=== PATIENT | female | born 1955 | race Caucasian/White ===

== ENCOUNTER → 2021-01-04 10:37 | Outpatient (CLI) | payer MEDICARE, SELFPAY ==
--- NOTE | ~2021-01-04 | MM_ITS ---
EXAMINATION: MM screening dina BI w tino HISTORY: Screening mammogram TECHNIQUE: Craniocaudal and mediolateral oblique 3-D tomosynthesis images were obtained and synthetic 2-D images were generated. CAD analysis was submitted and interpreted. COMPARISON: 10/23/2017, 10/16/2016, 10/14/2015 bilateral digital screening mammogram examinations BREAST PARENCHYMAL COMPOSITION: The breasts are almost entirely fatty. FINDINGS: There is no evidence of suspicious mass, calcification, or architectural distortion to sugg est malignancy in either breast. There has been no suspicious interval change. IMPRESSION: 1. No mammographic evidence of malignancy. 2. Recommend routine screening mammography in one year. BI-RADS Category 1: Negative Reviewed, dictated and finalized at location A.
== END ==
PROVIDERS: PCP Internal Medicine; Visit Provider Internal Medicine
DX: Z12.31 Encounter for screening mammogram for malignant neoplasm of breast (principal)
CPT/HCPCS: 77063; 77067

== ENCOUNTER 2021-01-18 11:22 | Outpatient (CLI) | payer MEDICARE, SELFPAY ==
--- NOTE | ~2021-01-18 | XR_ITS ---
EXAMINATION: XR sacroiliac joints min 3V INDICATION: Low back pain TECHNIQUE: Three views of the sacroiliac joints are obtained. COMPARISON: None available FINDINGS: Bone alignment is normal. There is no fracture. No abnormal sclerosis or erosion is identif ied. There is severe lumbar spondylosis at L5-S1. IMPRESSION: 1. No acute osseous abnormality. Reviewed, dictated and finalized at location A.
--- NOTE | ~2021-01-18 | XR_ITS ---
EXAMINATION: XR lumbar spine 6V w bending DATE: 01/18/2021 11:52 INDICATION: Low back pain TECHNIQUE: Anteroposterior, lateral in neutral, flexion and extension, and bilateral oblique views of the lumbar spine, and cone-down lateral view of the lumbosacral junction were obtained. COMPARISON: None. FINDINGS: There is unchanged severe loss of intervertebral disc space height at L5-S1. There is mild loss of intervertebral disc space height at L3-4. Vertebral body heights and alignment are normal. No laxity is present with flexion or extension. There is no fracture. There is severe facet osteoarthri tis of the mid and lower lumbar spine. Small degenerative osteophytes project from the anterior endpl ates of multiple vertebral bodies. Calcified atherosclerosis is noted. IMPRESSION: 1. Severe lower lumbar spondylosis without acute findings or significant interval change. Reviewed, dictated and finalized at location A. IMPRESSION: 1. Severe lower lumbar spondylosis without acute findings or significant interv al change.
== END 2021-01-18 11:23 | disposition home or self-care (01) ==
PROVIDERS: PCP Internal Medicine; Visit Provider Internal Medicine
DX: M47.816 Spondylosis without myelopathy or radiculopathy, lumbar region (principal); M46.1 Sacroiliitis, not elsewhere classified
CPT/HCPCS: 72114; 72202

== ENCOUNTER 2021-06-02 12:41 | Outpatient (CLI) | payer MEDICARE, SELFPAY ==
--- NOTE | ~2021-06-02 | CT_ITS ---
EXAMINATION: CT lung screening DATE: 06/02/2021 13:13 INDICATION: Personal history of tobacco dependence, current smoker with 33 pack year history TECHNIQUE: Computed tomography (CT) of the chest was performed without intravenous contrast. The dose -length product (DLP) was 135.34 mGy-cm. Automated exposure control and iterative reconstruction tech [email or web address] were employed. COMPARISON: 08/07/2017 FINDINGS: There is mild emphysema. There are chronic, stable 1 to 2 mm nodules with an upper lobe pre dominance. There is a new 3 mm nodule in the left lower lobe on image 71. There is no pleural effusio n or pneumothorax. No pathologically enlarged thoracic lymph nodes are identified. The heart size is normal. Calcified coronary artery atherosclerosis is noted. There is mild thoracic spondylosis. The l iver is diffusely low in attenuation when compared with the spleen, consistent with hepatic steatosis . IMPRESSION: 1. Lung-RADS category 2: Benign appearance or behavior. Continue annual screening with noncontrast lo w-dose chest CT in 12 months. Reviewed, dictated and finalized at location B. IMPRESSION: 1. Lung-RADS category 2: Benign appearance or behavior. Continue annual screeni ng with noncontrast low-dose chest CT in 12 months.
== END 2021-06-02 12:42 | disposition home or self-care (01) ==
LOC: ANHIMG 12:49
PROVIDERS: PCP Internal Medicine; Visit Provider Internal Medicine
DX: Z12.2 Encounter for screening for malignant neoplasm of respiratory organs (principal); Z87.891 Personal history of nicotine dependence
CPT/HCPCS: 71271

== ENCOUNTER 2022-05-23 13:28 | Outpatient (CLI) | payer MEDICARE, SELFPAY ==
--- NOTE | 2022-05-23 13:35 | ECHO_ITS ---
Patient Info Name: Danika Dasilva Age: 66 years : 1955 Gender: Female Ht: 66 in Wt: 192 lbs BSA: 2.04 m2 HR: 97 bpm BP: 137 / 81 mmHg Technical Quality: Fair Exam Date: 05/23/2022 2:19 PM Exam Location: [facility] Patient Status: Outpatient Admit Date: 05/23/2022 Staff Ordering Physician: Yahir Iniguez MD Developmental Electronics Assembler: Alicia Payne RDCS Attending Provider: Yahir Iniguez MD Referring Physician: Hira NEWELL; Exam Type: CA echo doppler color flow Study Info Indications - unspecified atrial fibrillation Complete two-dimensional, color flow and Doppler transthoracic echocardiogram is performed. Summary 1. Complete two-dimensional, color flow and Doppler transthoracic echocardiogram is performed. 2. Left ventricular chamber dimension is normal. 3. Left ventricular systolic function is normal, estimated at 55-60%. 4. The left ventricular diastolic function is grade I diastolic dysfunction. 5. E/e' 7 is not elevated. 6. There is trivial pericardial effusion. Left Ventricle E/e' 7 is not elevated. Left ventricular chamber dimension is normal. Left ventricular systolic function is normal, estimated at 55-60%. The left ventricular diastolic function is grade I diastolic dysfunction. Right Ventricle Right ventricular systolic function is normal and with normal TAPSE 2.0 cm. Right ventricular chamber dimension is normal. Left Atria Left atrial chamber dimension is normal. Right Atria Right atrial chamber dimension is normal. Aortic Valve The aortic valve is not well visualized. Cannot determine number of aortic valve leaflets. There is no aortic valve stenosis. There is no aortic valve regurgitation. Pulmonic Valve There is no pulmonic regurgitation. Mitral Valve There is no mitral valve stenosis. There is no mitral valve regurgitation. Tricuspid Valve There is no tricuspid valve regurgitation. Pericardium/Pleural There is trivial pericardial effusion. Inferior Vena Cava Normal inferior vena cava with >50% collapse upon inspiration consistent with normal right atrial pressure, 5 mmHg. Aorta The aortic root size at the sinus of Valsalva is normal. Left Ventricular Outflow Tract Name Value Normal LVOT 2D LVOT Diameter 2.2 cm LVOT Doppler LVOT Peak Gradient 4 mmHg LVOT Mean Gradient 3 mmHg LVOT VTI 20 cm LVOT VTI/AV VTI Ratio 0.8 LVOT Stroke Volume 73 ml LVOT CO 6.8 l/min LVOT CI 3.3 l/min/m2 Mitral Valve Name Value Normal MV Doppler MV Peak Gradient 4 mmHg MV Mean Gradient 2 mmHg MV Decel [place]
== END 2022-05-23 13:29 | disposition home or self-care (01) ==
LOC: ANHCARD 13:30
PROVIDERS: PCP Internal Medicine; Visit Provider Internal Medicine
DX: I48.91 Unspecified atrial fibrillation (principal); Z82.49 Family history of ischemic heart disease and other diseases of the circulatory system
CPT/HCPCS: 93306

== ENCOUNTER 2022-05-31 10:10 | Outpatient (CLI) | payer MEDICARE, SELFPAY ==
--- NOTE | ~2022-05-31 | MM_ITS ---
EXAMINATION: MM screening dina BI w tino HISTORY: Screening TECHNIQUE: Craniocaudal and mediolateral oblique 3-D tomosynthesis images were obtained and synthetic 2-D images were generated. CAD analysis was submitted and interpreted. COMPARISON: Comparison to multiple prior studies sequentially, with oldest reviewed study dated 10/13. BREAST PARENCHYMAL COMPOSITION: The breasts are almost entirely fatty. FINDINGS: There is no evidence of suspicious mass, calcification, or architectural distortion to sugg est malignancy in either breast. There has been no suspicious interval change. IMPRESSION: 1. No mammographic evidence of malignancy. 2. Recommend routine screening mammography in one year. BI-RADS Category 1: Negative Reviewed, dictated and finalized at location A.
== END 2022-05-31 10:11 | disposition home or self-care (01) ==
PROVIDERS: PCP Internal Medicine; Visit Provider Internal Medicine
DX: Z12.31 Encounter for screening mammogram for malignant neoplasm of breast (principal)
CPT/HCPCS: 77063; 77067

== ENCOUNTER 2022-06-05 10:12 | Outpatient (CLI) | payer MEDICARE, SELFPAY ==
--- NOTE | ~2022-06-05 | CT_ITS ---
EXAMINATION: CT lung screening DATE: 06/05/2022 10:38 INDICATION: Personal history of nicotine dependence, current smoker with 30 pack year history TECHNIQUE: Computed tomography (CT) of the chest was performed without intravenous contrast. The dose -length product (DLP) was 201.44 mGy-cm. Automated exposure control and iterative reconstruction tech [employer] were employed. COMPARISON: 06/02/2021 FINDINGS: There is mild emphysema. Again noted are stable, chronic 1 to 2 mm nodules with an upper lo be predominance. There is a stable 3 mm nodule in the left lower lobe. No new pulmonary nodules are i dentified. There is mild dependent atelectasis. No focal airspace opacities are identified. No pleura l effusion or pneumothorax. Calcified coronary artery atherosclerosis is noted. No pathologically enl arged thoracic lymph nodes are identified. The heart size is normal. The liver is diffusely low in at tenuation when compared with the spleen, consistent with hepatic steatosis. There is mild thoracic sp ondylosis. IMPRESSION: 1. Lung-RADS category 2: Benign appearance or behavior. Continue annual screening with noncontrast lo w-dose chest CT in 12 months. Reviewed, dictated and finalized at location B. K BIOLOGIST IMPRESSION: 1. Lung-RADS category 2: Benign appearance or behavior. Continue annual screeni ng with noncontrast low-dose chest CT in 12 months.
== END 2022-06-05 10:13 | disposition home or self-care (01) ==
PROVIDERS: PCP Internal Medicine; Visit Provider Internal Medicine
DX: Z12.2 Encounter for screening for malignant neoplasm of respiratory organs (principal); Z87.891 Personal history of nicotine dependence
CPT/HCPCS: 71271

== ENCOUNTER 2022-09-01 14:38 | Outpatient (CLI) | payer MEDICARE, SELFPAY ==
[2022-09-01 15:47] LABS: Troponin I < 0.012 ng/mL (0.000-0.034)
== END 2022-09-01 14:39 | disposition home or self-care (01) ==
LOC: ANHLAB 14:40
PROVIDERS: PCP Internal Medicine; Visit Provider Internal Medicine
DX: R07.9 Chest pain, unspecified (principal)
CPT/HCPCS: 36415; 84484

== ENCOUNTER 2023-09-20 10:09 | Outpatient (CLI) | payer MEDICARE, SELFPAY ==
--- NOTE | ~2023-09-20 | CT_ITS ---
CT Scan of the Chest without Contrast: Clinical Indication: Lung cancer screening, personal history of nicotine dependence Technique: Contiguous sections were acquired throughout the chest without intravenous contrast. Dose reduction technique was used on this scan by utilizing automated exposure control and iterative recon struction technique. The dose-length product (DLP) was 171.00 mGy-cm. COMPARISON: 06/05/2022 Findings: There is no evidence of any significant mediastinal, hilar or axillary lymphadenopathy. The mediastin al soft tissues appear normal. There is no evidence of pleural or pericardial effusion. Tiny right apical pulmonary nodules are present. 3 mm left upper lobe pulmonary nodule present. Images through the upper abdomen reveal diffuse fatty infiltration of the liver. Impression: Lung RADS 2: Benign appearance. 12 month follow-up screening CT advised. Reviewed, dictated and finalized at [facility]. MARKETING MANAGER Impression: Lung RADS 2: Benign appearance. 12 month follow-up screening CT advised.
== END 2023-09-20 10:10 | disposition home or self-care (01) ==
PROVIDERS: PCP Internal Medicine; Visit Provider Internal Medicine
DX: Z12.2 Encounter for screening for malignant neoplasm of respiratory organs (principal); Z87.891 Personal history of nicotine dependence
CPT/HCPCS: 71271

== ENCOUNTER 2023-10-01 09:58 | Outpatient (CLI) | payer MEDICARE, SELFPAY ==
--- NOTE | ~2023-10-01 | MM_ITS ---
EXAMINATION: MM screening dnia BI w tino HISTORY: Screening mammogram TECHNIQUE: Craniocaudal and mediolateral oblique 3-D tomosynthesis images were obtained and synthetic 2-D images were generated. CAD analysis was submitted and interpreted. COMPARISON: 05/2000, 01/04/2021 bilateral screening mammogram examinations BREAST PARENCHYMAL COMPOSITION: There are scattered areas of fibroglandular density. FINDINGS: There is no evidence of suspicious mass, calcification, or architectural distortion to sugg est malignancy in either breast. There has been no suspicious interval change. IMPRESSION: 1. No mammographic evidence of malignancy. 2. Recommend routine screening mammography in one year. BI-RADS Category 1: Negative Reviewed, dictated and finalized at location A. OL TANKER DRIVER
== END 2023-10-01 09:59 | disposition home or self-care (01) ==
LOC: ANHIMG 10:03
PROVIDERS: PCP Internal Medicine; Visit Provider Internal Medicine
DX: Z12.31 Encounter for screening mammogram for malignant neoplasm of breast (principal)
CPT/HCPCS: 77063; 77067

== ENCOUNTER 2024-05-22 00:55 | Day surgery (SDC) | payer MEDICARE, SELFPAY ==
--- NOTE | 2024-05-22 07:30 | SUR.PREOP ---
Returned call to patient in regards to voiced concerns regarding prep. Patient is concerned about not being cleaned out this morning. Patient states I was totally clear when I went to bed last night, and when i woke up this morning I had a little small poops in the toilet . Asked patient to explain in more detail what her bowel movement look like this morning. Educated patient that some sediment this morning can be normal in the bottom of the toilet, as long as it is mostly clear, yellow in the toilet. Explained that it should be clear when she wipes as well. Patient stated her bowel movements were not brown, and they were clear liquid. Patient wishes to continue with scheduled procedure.
--- NOTE | 2024-05-22 10:01 | WPDANESEPPF ---
Anes - Initial Pre Proc Eval Procedure: Operation Date: 05/22/24 10:30 Proposed Procedures p Colonoscopy - Carl Hoang MD Date/Time: 05/22/24 10:01 Surgeon: Carl Hoang MD Pre Op Diagnosis: personal hx colon polyps Patient Data Age: 68 Gender: F Height: Weight: Allergies Allergy/AdvReac Type Severity Reaction Status Date / Time phenylbutazone Allergy Severe Swelling Verified 05/22/24 10:04 morphine Allergy Unknown Itching Verified 05/22/24 10:04 Home Medications Medication Instructions Recorded Confirmed Type cyclobenzaprine 10 mg tablet 10 mg PO TID PRN muscle spasm #30 05/29/22 05/06/24 Rx tabs alprazolam 0.25 mg tablet 0.25 mg PO TID #90 tabs 02/25/24 05/06/24 Rx diltiazem HCl 300 mg See Rx Instructions .Route 03/03/24 05/06/24 Rx capsule,extended release 24 hr .COMPLEX #90 caps levothyroxine 112 mcg tablet See Rx Instructions .Route 03/28/24 05/06/24 Rx .COMPLEX #90 tabs cholecalciferol (vitamin D3) 50 100 mcg PO DAILY 04/23/24 05/06/24 History mcg (2,000 unit) capsule sodium,potassium,mag sulfates 17.5 See Rx Instructions .Route 05/09/24 Rx gram-3.13 gram-1.6 gram oral soln .COMPLEX #354 mL (Suprep Bowel Prep Kit) phenytoin sodium extended 100 mg See Rx Instructions .Route 05/11/24 Rx capsule .COMPLEX #180 caps Patient hx anesthesia problems: none Family hx anesthesia problems: none Results Review: All pre-operative results and documents have been reviewed as part of the pre-operative evaluation. [facility] Past Medical History Medical History Acute pain of right knee Anxiety BMI 28.0-28.9,adult BMI 29.0-29.9,adult BMI 30.0-30.9,adult Breast cancer screening Chronic low back pain Colon cancer screening COVID-19 vaccine administered DJD (degenerative joint disease), multiple sites Encounter for routine adult health examination with abnormal findings Encounter for routine adult health examination without abnormal findings Family history of valvular heart disease Hematuria History of atrial fibrillation History of colon polyps History of diverticulitis History of hematuria Hx of seizure disorder Hypothyroidism Left hip pain Mixed hyperlipidemia On assisted drug therapy Personal history of nicotine dependence Postmenopausal Sacroiliitis Screening mammogram, encounter for Skin lesion of neck Stress Supraventricular tachycardia Tobacco abuse UTI (urinary tract infection) Visual floaters Vitamin D deficiency Family History Family History Mother Hypertension Family history of arthritis Father Family history of arthritis Other Family history of headache disorder Social History Social History Smoking packs per day: 1 Smoking cigarettes per day: 20.0 Years smoked: 40 Smoking pack-years: 40.00 Smoking status: Current some day smoker Tobacco type: cigarettes Second hand tobacco smoke exposure: Yes Alcohol intake: current Drinks per week: 14 Substance use: never Substance use type: does not use Do You Feel Safe in your Home?: Yes Lack of Transportation: No Lack of Food: Never True Current Housing: I Have Housing Concerned About Future Housing: No Difficulty Paying Gas/Electric Bills: No Difficulty Paying for Meds: No Difficulty w/ Childcare or Family Care: No Occupation/Education: retired Gender identity (if verbalized by the patient): Female Spiritual care concerns: No Anes - Eval Final PreProcedure Day of Procedure 05/22/24 10:01 Patient weight: overweight Heart: regular rate and rhythm Lungs: clear to auscultation Airway: Mallampati scale class II Neurological: alert and oriented Last oral intake: >/= 8 hours ASA classification: III Emergent: no Anesthetic plan: proceed Anesthesia type and monitoring: general GIVS and standard monitoring Results Review: All pre-operative results and documents have been reviewed as part of the pre-operative evaluation. Informed Consent: The patient's anesthetic plan and its attendant risks and benefits were discussed with the patient/family/POA. Questions were solicited and answers provided to the satisfaction of the patient/family/POA.
[2024-05-22 10:05] VITALS: BP 146/108; PULSE 108; RESP 20; TEMP 36.2; O2SAT 100; BMI 30.9
[2024-05-22] MEDS: LACTATED RINGERS 1,000 ML 150 ML IV CONT (10:12)
--- NOTE | 2024-05-22 11:35 | PM.IMHP ---
H&P: HPI History of Present Illness Date/Time: 05/22/24 11:35 Chief Complaint: History of colon polyps Narrative: The patient has a history of colonic polyps, the last colonoscopy was 5 years ago. Review of Systems Review of Systems: All systems reviewed & are unremarkable except as noted in HPI and below PMFSH Past Medical History Medical History Acute pain of right knee Anxiety BMI 28.0-28.9,adult BMI 29.0-29.9,adult BMI 30.0-30.9,adult Breast cancer screening Chronic low back pain Colon cancer screening COVID-19 vaccine administered DJD (degenerative joint disease), multiple sites Encounter for routine adult health examination with abnormal findings Encounter for routine adult health examination without abnormal findings Family history of valvular heart disease Hematuria History of atrial fibrillation History of colon polyps History of diverticulitis History of hematuria Hx of seizure disorder Hypothyroidism Left hip pain Mixed hyperlipidemia On nursing home drug therapy Personal history of nicotine dependence Postmenopausal Sacroiliitis Screening mammogram, encounter for Skin lesion of neck Stress Supraventricular tachycardia Tobacco abuse UTI (urinary tract infection) Visual floaters Vitamin D deficiency Family History Family History Mother Hypertension Family history of arthritis Father Family history of arthritis Other Family history of headache disorder Social History Social History Smoking packs per day: 1 Smoking cigarettes per day: 20.0 Years smoked: 40 Smoking pack-years: 40.00 Smoking status: Current some day smoker Tobacco type: cigarettes Second hand tobacco smoke exposure: Yes Alcohol intake: current Drinks per week: 14 Substance use: never Substance use type: does not use Do You Feel Safe in your Home?: Yes Lack of Transportation: No Lack of Food: Never True Current Housing: I Have Housing Concerned About Future Housing: No Difficulty Paying Gas/Electric Bills: No Difficulty Paying for Meds: No Difficulty w/ Childcare or Family Care: No Occupation/Education: retired Gender identity (if verbalized by the patient): Female Spiritual care concerns: No Meds Home Medications and Allergies Home Medications Medication Instructions Recorded Confirmed Type cyclobenzaprine 10 mg tablet 10 mg PO TID PRN muscle spasm #30 05/29/22 05/22/24 Rx tabs alprazolam 0.25 mg tablet 0.25 mg PO TID #90 tabs 02/25/24 05/22/24 Rx diltiazem HCl 300 mg See Rx Instructions .Route 03/03/24 05/22/24 Rx capsule,extended release 24 hr .COMPLEX #90 caps levothyroxine 112 mcg tablet See Rx Instructions .Route 03/28/24 05/22/24 Rx .COMPLEX #90 tabs cholecalciferol (vitamin D3) 50 100 mcg PO DAILY 04/23/24 05/22/24 History mcg (2,000 unit) capsule phenytoin sodium extended 100 mg See Rx Instructions .Route 05/11/24 05/22/24 Rx capsule .COMPLEX #180 caps Allergies Allergy/AdvReac Type Severity Reaction Status Date / Time phenylbutazone Allergy Severe Swelling Verified 05/22/24 10:04 morphine Allergy Unknown Itching Verified 05/22/24 10:04 Vital Signs Vital Signs - 24 hr 05/22/24 10:05 Temperature 97.1 F L Pulse Rate 108 H Respiratory Rate 20 Blood Pressure 146/108 H Pulse Oximetry 100 Oxygen Delivery Room Air Assessment and Plan Assessment and plan (1) History of colon polyps: Code(s): Z86.010 - Personal history of colon polyps Status: Acute Plan The patient is deemed a good candidate for the procedure. Consent signed. Will proceed.
[2024-05-22 12:02] VITALS: BP 134/70; PULSE 95; RESP 28; O2SAT 99
[2024-05-22 12:12] VITALS: BP 122/65; PULSE 89; RESP 25; O2SAT 100
[2024-05-22 12:22] VITALS: BP 150/79; PULSE 92; RESP 25; O2SAT 100
== END 2024-05-22 12:28 | disposition home or self-care (01) ==
PROVIDERS: PCP Internal Medicine; Visit Provider Internal Medicine Gastroenterology
PROC: 0DJD8ZZ Inspection of Lower Intestinal Tract, Via Natural or Artificial Opening Endoscopic (ICD-10-PCS; CPT 45378; principal; 2024-05-22 10:30)
DX: Z12.11 Encounter for screening for malignant neoplasm of colon (principal); K57.30 Diverticulosis of large intestine without perforation or abscess without bleeding; E03.9 Hypothyroidism, unspecified; E78.2 Mixed hyperlipidemia; F41.9 Anxiety disorder, unspecified; E55.9 Vitamin D deficiency, unspecified; G89.29 Other chronic pain; M54.50 Low back pain, unspecified; M15.9 Polyosteoarthritis, unspecified; F17.210 Nicotine dependence, cigarettes, uncomplicated; Z79.899 Other long term (current) drug therapy; Z86.0100 Personal history of colon polyps, unspecified; Z87.19 Personal history of other diseases of the digestive system; Z86.79 Personal history of other diseases of the circulatory system; Z82.49 Family history of ischemic heart disease and other diseases of the circulatory system
CPT/HCPCS: G0105; J2003; J2704; J7120

== ENCOUNTER 2024-11-07 09:41 | Outpatient (CLI) | payer MEDICARE, SELFPAY ==
--- NOTE | ~2024-11-07 | MM_ITS ---
EXAMINATION: MM screening dina BI w tino HISTORY: Screening TECHNIQUE: Craniocaudal and mediolateral oblique 3-D tomosynthesis images were obtained and synthetic 2-D images were generated. CAD analysis was submitted and interpreted. COMPARISON: Comparison to multiple prior studies sequentially, with oldest reviewed study dated 10/13. BREAST PARENCHYMAL COMPOSITION: Not Dense: The breasts are almost entirely fatty. FINDINGS: There is no evidence of suspicious mass, calcification, or architectural distortion to sugg est malignancy in either breast. There has been no suspicious interval change. IMPRESSION: 1. No mammographic evidence of malignancy. 2. Recommend routine screening mammography in one year. BI-RADS Category 1: Negative Reviewed, dictated and finalized at location A.
--- OUTSIDE RECORDS SUMMARY | 2024-11-07 10:09 | XMS_ITS | Clinical Summary ---
Author Organization [facility] [address] [facility] 162 Address [address] [facility] 162 [place] [address] Care Team Providers Care Education Supervisor Name Role Phone Yahir Iniguez MD Primary Care Provider [phone] Allergies Active Allergy Reactions Criticality Noted Date Comments Morphine Hives Medium 03/14/2023 Medications levothyroxine (SYNTHROID) 112 mcg tablet Take 1 tablet (112 mcg total) by mouth daily 01/15/2023 Active dilTIAZem CD (CARDIZEM CD) 300 mg 24 hr capsule Take 1 capsule (300 mg total) by mouth daily 01/12/2023 Active ALPRAZolam (XANAX) 0.25 mg tablet Take 1 tablet (0.25 mg total) by mouth 3 (three) times a day 01/01/2023 Active cyclobenzaprine (FLEXERIL) 10 mg tablet Take 1 tablet (10 mg total) by mouth 3 (three) times a day as needed for muscle spasms Active phenytoin ER (DILANTIN) 100 mg ER capsule Take 2 capsules (200 mg total) by mouth daily 02/15/2023 Active Active Problems Problem Noted Date Diagnosed Date SVT (supraventricular tachycardia) 03/14/2023 Thyroid activity decreased 08/26/2012 Encounters Date Type Department Care Team Description 10/02/2024 10:00 AM GANG HEAD SAW OPERATOR Office Visit [facility] Medical Group Cardiology at [address] [place] [address] Rojas Ennis MD SVT (supraventricular tachycardia) (Primary Dx) from Last 3 Months Surgical History Surgery Date Site/Laterality Comments DC APPENDECTOMY Appendectomy - 1995 (Added by TW Conv) DILATION AND CURETTAGE OF UTERUS Dilation And Curettage - (Added by ELHAM Conv) CARPAL TUNNEL RELEASE Medical History Medical History Date Comments Atrial fibrillation (HCC) Palpitations Hyperlipidemia Left hip pain Anxiety Diverticulitis Seizure disorder (HCC) Thyroid disease Family History Medical History Relation Name Comments Breast cancer Maternal Grandmother Breast Cancer - (Added by ELHAM Conv) Breast cancer Mother Breast Cancer - (Added by ELHAM Conv) Lung cancer Mother Relation Name Status Comments Father Maternal Grandmother Mother Social History Tobacco Use Types Packs/Day Years Used Date Smoking Tobacco: Every Day Cigarettes Smokeless Tobacco: Never Tobacco Cessation:Ready to Q uit: Not Asked; Counseling Given: Not Answered Comments Unknown Sex and Gender Information Value Date Recorded Sex Assigned at Not on file Legal Sex Female 1:12 AM GANG HEAD SAW OPERATOR Gender Identity Not on file Sexual Orientation Not on file Obstetrics History Last Filed Vital Signs Vital Sign Reading Time Taken Comments Blood Pressure 140/70 10/02/2024 10:09 AM GANG HEAD SAW OPERATOR Pulse 99 10/02/2024 10:09 AM GANG HEAD SAW OPERATOR Temperature - - Respiratory Rate - - Oxygen Saturation 99% 10/02/2024 10:09 AM GANG HEAD SAW OPERATOR Inhaled Oxygen Concentration - - Weight 88.5 kg (195 lb) 10/02/2024 10:09 AM GANG HEAD SAW OPERATOR Height 167.6 cm (5' 6 ) 10/02/2024 10:09 AM GANG HEAD SAW OPERATOR Body Mass Index 31.47 10/02/2024 10:09 AM GANG HEAD SAW OPERATOR Plan of Treatment Health Maintenance Due Date Last Done Comments Colon Cancer Screening-Colonoscopy 1955 Depression Screening 1955 Fall Risk Assessment 1955 Hepatitis C Screening 1955 Osteoporosis Screening-Bone Density Scan 1955 DTaP/Tdap/Td Vaccine (1 - Tdap) 10/12/1966 Hepatitis B Screening 10/12/1973 Breast Cancer Screening-Mammogram 07/28/2015 014, 06/16/2013 Well Visit 65+ 10/12/2020 Covid-19 Vaccine (2023-2 5 season) 2024 05/07/2024, 04/17/2023, 05/10/2022, Additional history exists Pneumococcal vaccine 65+ Completed 04/05/2022 Zoster Vaccine Completed 07/10/2023, 04/24/2023 Influenza Vaccine Completed 05/07/2024, , 05/10/2022, Additional history exists Procedures Procedure Name Priority Date/Time Associated Diagnosis Comments SCREENING MAMMOGRAM W AP Routine 07/28/2014 11:11 AM GANG HEAD SAW OPERATOR from Last 3 Months or Most Recently Relevant to Health Maintenance Results * Screening Mammogram W Ap (07/28/2014 11:11 AM GANG HEAD SAW OPERATOR) Anatomical Region Laterality Modality Breast N/A Mammography 07/28/2014 11:1 1 AM GANG HEAD SAW OPERATOR Narrative 07/28/2014 3:27 PM GANG HEAD SAW OPERATOR ANALY HAYES M.D. FINAL REPORT ACC# Date Time Exam [id number] Jul 28, 2014 11:11:00 [facility] [id number] Bilateral screen w ap Technologist(s): Alejandrina Lopez; ; EXAMINATION: Mammogram Technique: Bilateral Bilateral Full-Field Digital Screening Mammogram and Digital Breast Tomosynthesis were performed. Views obtained: bilateral craniocaudal and bilateral mediolateral oblique. Computer Aided Detection of the 2D images was performed with sMedio.3 version 9.3. Mammogram Findings: The present examination has been compared to prior imaging studies performed at [facility] on 06/16/2013, 06/12/2012 and 05/19/2011. There are scattered fibroglandular densities. There is no suspicious abnormality in either breast. IMPRESSION: Annual screening mammography is recommended. OVERALL FINAL ASSESSMENT: BI-RADS CATEGORY 1: Negative. Requested By: Dictated By: ANALY HAYES M.D. on Jul 28 2014 3:27P This document has been electronically signed by: ANALY HAYES M.D. on Jul 28 2014 3:27P Procedure Note Provider, MD iMguel - 11/23/2016 ANALY HAYES M.D. FINAL REPORT ACC# Date Time Exam [id number] Jul 28, 2014 11:11:00 [facility] [id number] Bilateral screen w ap Technologist(s): Alejandrina Lopez; ; EXAMINATION: Mammogram Technique: Bilateral Bilateral Full-Field Digital Screening Mammogram and Digital Breast Tomosynthesis were performed. Views obtained: bilateral craniocaudal and bilateral mediolateral oblique. Computer AidedDetection of the 2D images was performed with sMedio.3 version 9.3. Mammogram Findings: The present examination has been compared to prior imaging studies performed at [facility] on 06/16/2013, 06/12/2012 and 05/19/2011. There are scattered fibroglandular densities. There is no suspicious abnormality in either breast. IMPRESSION: Annual screening mammography is recommended. OVERALL FINAL ASSESSMENT: BI-RADS CATEGORY 1: Negative. Requested By: Dictated By: ANALY HAYES M.D. on Jul 28 2014 3:27P This document has been electronically signed by: ANALY HAYES M.D. on Jul 28 2014 3:27P Historical Provider MD NIX MAMMO PROCEDURES Maya l Result from Last 3 Months or Most Recently Relevant to Health Maintenance Insurance MEDICARE [facility] Address: [address] [address] [place] [address] [employer] S[employer]IOR [employer]MENT MEDICARE [employer] S[employer]IOR [employer]MENT Care Teams Education Supervisor Relationship Specialty Start Date End Date Yahir Iniguez MD [address]NAL MEDICINE [place], [place] [id number] PCP - General Internal Medicine 01/15/23
--- OUTSIDE RECORDS SUMMARY | 2024-11-07 10:09 | XMS_ITS | Referral Summary ---
Author Organization [facility] [address] [facility] 162 Address [address] [place] [address] Care Team Providers Care Fusing Machine Operator Name Role Phone Yahir Iniguez MD Primary Care Provider [phone] Encounters Date Type Department Care Team Description 10/02/2024 10:00 AM TRIM OPERATOR Office Visit [facility] Medical Group Cardiology at [address] [place] [address] Rojas Ennis MD SVT (supraventricular tachycardia) (Primary Dx) from Last 3 Months Allergies Active Allergy Reactions Criticality Noted Date [...] (supraventricular tachycardia) 03/14/2023 Thyroid activity decreased 08/26/2012 Social History Tobacco Use Types Packs/Day Years Used Date Smoking Tobacco: Every Day Cigarettes Smokeless Tobacco: Never Tobacco Cessation:Ready to Q uit: Not Asked; Counseling Given: Not Answered Comments Unknown Sex and Gender Information Value Date Recorded Sex Assigned at Not on file Legal Sex Female 1:12 AM TRIM OPERATOR Gender Identity Not on file Sexual Orientation Not on file Last Filed Vital Signs Vital Sign Reading Time Taken Comments Blood Pressure 140/70 10/02/2024 10:09 AM TRIM OPERATOR Pulse 99 10/02/2024 10:09 AM TRIM OPERATOR Temperature - - Respiratory Rate - - Oxygen Saturation 99% 10/02/2024 10:09 AM TRIM OPERATOR Inhaled Oxygen Concentration - - Weight 88.5 kg (195 lb) 10/02/2024 10:09 AM TRIM OPERATOR Height 167.6 cm (5' 6 ) 10/02/2024 10:09 AM TRIM OPERATOR Body Mass Index 31.47 10/02/2024 10:09 AM TRIM OPERATOR Plan of Treatment Not on file Procedures Procedure Name Priority Date/Time Associated Diagnosis Comments SCREENING MAMMOGRAM W AP Routine 07/28/2014 11:11 AM TRIM OPERATOR from Last 3 Months or Most Recently Relevant to Health Maintenance Results * Screening Mammogram W Ap (07/28/2014 11:11 AM TRIM OPERATOR) Anatomical Region Laterality Modality Breast N/A Mammography 07/28/2014 11:1 1 AM TRIM OPERATOR Narrative 07/28/2014 3:27 PM TRIM OPERATOR ANALY HAYES M.D. FINAL REPORT ACC# Date Time Exam [id number] Jul 28, 2014 11:11:00 [facility] [id number] Bilateral screen w ap Technologist(s): Alejandrina Lopez; ; EXAMINATION: Mammogram Technique: Bilateral Bilateral Full-Field Digital Screening Mammogram and Digital Breast Tomosynthesis were performed. Views obtained: bilateral craniocaudal and bilateral mediolateral oblique. Computer Aided Detection of the 2D images was performed with Kalibrr.3 version 9.3. Mammogram Findings: The present examination has been compared to prior imaging studies performed at [facility] on 06/16/2013, 06/12/2012 and 05/19/2011. There are scattered fibroglandular densities. There is no suspicious abnormality in either breast. IMPRESSION: Annual screening mammography is recommended. OVERALL FINAL ASSESSMENT: BI-RADS CATEGORY 1: Negative. Requested By: Dictated By: ANALY HAYES M.D. on Jul 28 2014 3:27P This document has been electronically signed by: ANALY HAYES M.D. on Jul 28 2014 3:27P Procedure Note Provider, MD Miguel - 11/23/2016 ANALY HAYES M.D. FINAL REPORT ACC# Date Time Exam [id number] Jul 28, 2014 11:11:00 [facility] [id number] Bilateral screen w ap Technologist(s): Alejandrina Lopez; ; EXAMINATION: Mammogram Technique: Bilateral Bilateral Full-Field Digital Screening Mammogram and Digital Breast Tomosynthesis were performed. Views obtained: bilateral craniocaudal and bilateral mediolateral oblique. Computer AidedDetection of the 2D images was performed with Kalibrr.3 version 9.3. Mammogram Findings: The present examination has been compared to prior imaging studies performed at [facility] on 06/16/2013, 06/12/2012 and 05/19/2011. There are [...] Recently Relevant to Health Maintenance Insurance MEDICARE [employer] [address] MEDICARE [employer] S[employer]IOR [employer]MENT Care Teams Fusing Machine Operator Relationship Specialty Start Date End Date Yahir Iniguez MD [address] [facility] [address] [place] [address] PCP - General Internal Medicine 01/15/23
== END 2024-11-07 09:42 | disposition home or self-care (01) ==
LOC: ANHIMG 09:43
PROVIDERS: PCP Internal Medicine; Visit Provider Internal Medicine
DX: Z12.31 Encounter for screening mammogram for malignant neoplasm of breast (principal)
CPT/HCPCS: 77063; 77067

== ENCOUNTER 2024-11-11 10:02 | Outpatient (CLI) | payer MEDICARE, SELFPAY ==
--- NOTE | ~2024-11-11 | CT_ITS ---
CT Scan of the Chest without Contrast: Clinical Indication: Lung cancer screening, nicotine dependence Technique: Contiguous sections were acquired throughout the chest without intravenous contrast. Dose reduction technique was used on this scan by utilizing automated exposure control and iterative recon struction technique. The dose-length product (DLP) was 197.17 mGy-cm. COMPARISON: 09/20/2023 Findings: There is no evidence of any significant mediastinal, hilar or axillary lymphadenopathy. Coronary corine ry calcifications are present. There is no evidence of pleural or pericardial effusion. Stable tiny subcentimeter nodules at the right lung apex. Focal scarring in the lingula is present. Images through the upper abdomen reveal diffuse fatty infiltration of the liver. Impression: Lung RADS 2: Benign appearance. 12 month follow-up screening CT recommended. Reviewed, dictated and finalized at [facility]. Impression: Lung RADS 2: Benign appearance. 12 month follow-up screening CT recommended.
--- OUTSIDE RECORDS SUMMARY | 2024-11-11 10:52 | XMS_ITS | Referral Summary ---
Author Organization [facility] [address] [facility] 162 Address [address] [place] [address] Care Team Providers Care Roofer Assistant Name Role Phone Yahir Iniguez MD Primary Care Provider [phone] Encounters Date Type Department Care Team Description 10/02/2024 10:00 AM ASSOCIATE PROJECT MANAGER Office Visit [facility] Medical Group Cardiology at [address] [place] [address] Rojas Ennis MD SVT (supraventricular [...] on file Legal Sex Female 1:12 AM ASSOCIATE PROJECT MANAGER Gender Identity Not on file Sexual Orientation Not on file Last Filed Vital Signs Vital Sign Reading Time Taken Comments Blood Pressure 140/70 10/02/2024 10:09 AM ASSOCIATE PROJECT MANAGER Pulse 99 10/02/2024 10:09 AM ASSOCIATE PROJECT MANAGER Temperature - - Respiratory Rate - - Oxygen Saturation 99% 10/02/2024 10:09 AM ASSOCIATE PROJECT MANAGER Inhaled Oxygen Concentration - - Weight 88.5 kg (195 lb) 10/02/2024 10:09 AM ASSOCIATE PROJECT MANAGER Height 167.6 cm (5' 6 ) 10/02/2024 10:09 AM ASSOCIATE PROJECT MANAGER Body Mass Index 31.47 10/02/2024 10:09 AM ASSOCIATE PROJECT MANAGER Plan of Treatment Not on file Procedures Procedure Name Priority Date/Time Associated Diagnosis Comments SCREENING MAMMOGRAM W AP Routine 07/28/2014 11:11 AM ASSOCIATE PROJECT MANAGER from Last 3 Months or Most Recently Relevant to Health Maintenance Results * Screening Mammogram W Ap (07/28/2014 11:11 AM ASSOCIATE PROJECT MANAGER) Anatomical Region Laterality Modality Breast N/A Mammography 07/28/2014 11:1 1 AM ASSOCIATE PROJECT MANAGER Narrative 07/28/2014 3:27 PM ASSOCIATE PROJECT MANAGER ANALY HAYES M.D. FINAL REPORT ACC# Date Time Exam [id number] Jul 28, 2014 11:11:00 [facility] [id number] Bilateral screen w ap Technologist(s): Alejandrina Lopez; ; EXAMINATION: Mammogram Technique: Bilateral Bilateral Full-Field Digital Screening Mammogram and Digital Breast Tomosynthesis were performed. Views obtained: bilateral craniocaudal and bilateral mediolateral oblique. Computer Aided Detection of the 2D images was performed with magnetic.io.3 version 9.3. Mammogram Findings: The present examination has been compared to prior imaging studies performed at [facility] on 06/16/2013, 06/12/2012 and 05/19/2011. There [...] M.D. FINAL REPORT ACC# Date Time Exam [id number] Jul 28, 2014 11:11:00 [facility] [id number] Bilateral screen w ap Technologist(s): Alejandrina Lopez; ; EXAMINATION: Mammogram Technique: Bilateral Bilateral Full-Field Digital Screening Mammogram and Digital Breast Tomosynthesis were performed. Views obtained: bilateral craniocaudal and bilateral mediolateral oblique. Computer AidedDetection of the 2D images was performed with magnetic.io.3 version 9.3. Mammogram Findings: The present examination has been compared to prior imaging studies performed at [facility] on 06/16/2013, 06/12/2012 and 05/19/2011. There [...] Health Maintenance Insurance MEDIC[place] [address] MEDICARE [employer] SENIOR [employer]MENT Care Teams Roofer Assistant Relationship Specialty Start Date End Date Yahir Iniguez MD [address] [facility] [address] [place] [address] PCP - General Internal Medicine 01/15/23
--- OUTSIDE RECORDS SUMMARY | 2024-11-11 10:52 | XMS_ITS | Clinical Summary ---
Author Organization [facility] [place] [address] [facility] 162 Address [address] [facility] [address] [place] [address] Care Team Providers Care Telegraph Service Rater Name Role Phone Yahir Iniguez MD Primary Care Provider [phone] Allergies Active Allergy Reactions Criticality Noted Date [...] Department Care Team Description 10/02/2024 10:00 AM OUTSIDE INSTALLER APPRENTICE Office Visit [facility] Medical Group Cardiology at [address] [place] [address] Rojas Ennis MD SVT (supraventricular tachycardia) (Primary Dx) from Last 3 Months Surgical History Surgery Date Site/Laterality Comments [place] APPENDECTOMY Appendectomy - 1995 (Added by TW [...] on file Legal Sex Female 1:12 AM OUTSIDE INSTALLER APPRENTICE Gender Identity Not on file Sexual Orientation Not on file Obstetrics History Last Filed Vital Signs Vital Sign Reading Time Taken Comments Blood Pressure 140/70 10/02/2024 10:09 AM OUTSIDE INSTALLER APPRENTICE Pulse 99 10/02/2024 10:09 AM OUTSIDE INSTALLER APPRENTICE Temperature - - Respiratory Rate - - Oxygen Saturation 99% 10/02/2024 10:09 AM OUTSIDE INSTALLER APPRENTICE Inhaled Oxygen Concentration - - Weight 88.5 kg (195 lb) 10/02/2024 10:09 AM OUTSIDE INSTALLER APPRENTICE Height 167.6 cm (5' 6 ) 10/02/2024 10:09 AM OUTSIDE INSTALLER APPRENTICE Body Mass Index 31.47 10/02/2024 10:09 AM OUTSIDE INSTALLER APPRENTICE Plan of Treatment Health Maintenance Due Date [...] MAMMOGRAM W AP Routine 07/28/2014 11:11 AM OUTSIDE INSTALLER APPRENTICE from Last 3 Months or Most Recently Relevant to Health Maintenance Results * Screening Mammogram W Ap (07/28/2014 11:11 AM OUTSIDE INSTALLER APPRENTICE) Anatomical Region Laterality Modality Breast N/A Mammography 07/28/2014 11:1 1 AM OUTSIDE INSTALLER APPRENTICE Narrative 07/28/2014 3:27 PM OUTSIDE INSTALLER APPRENTICE ANALY HAYES M.D. FINAL REPORT ACC# Date Time Exam [id number] Jul 28, 2014 11:11:00 [facility] [id number] Bilateral screen w ap Technologist(s): Alejandrina Lopez; ; EXAMINATION: Mammogram Technique: Bilateral Bilateral Full-Field Digital Screening Mammogram and Digital Breast Tomosynthesis were performed. Views obtained: bilateral craniocaudal and bilateral mediolateral oblique. Computer Aided Detection of the 2D images was performed with Tresata.3 version 9.3. Mammogram Findings: The present examination has been compared to prior imaging studies performed at [facility] on 06/16/2013, 06/12/2012 and 05/19/2011. There are [...] M.D. FINAL REPORT ACC# Date Time Exam [id number] Jul 28, 2014 11:11:00 [facility] [id number] Bilateral screen w ap Technologist(s): Alejandrina Lopez; ; EXAMINATION: Mammogram Technique: Bilateral Bilateral Full-Field Digital Screening Mammogram and Digital Breast Tomosynthesis were performed. Views obtained: bilateral craniocaudal and bilateral mediolateral oblique. Computer AidedDetection of the 2D images was performed with Tresata.3 version 9.3. Mammogram Findings: The present examination has been compared to prior imaging studies performed at [facility] on 06/16/2013, 06/12/2012 and 05/19/2011. There are [...] Health Maintenance Insurance MEDICARE [employer] SENIOR SUPPLEMENT MEDICARE [employer] SENIOR SUPPLEMENT Care Teams Telegraph Service Rater Relationship Specialty Start Date End Date Yahir Iniguez MD [address] INTERNAL MEDICINE [place], [place] [id number] PCP - General Internal Medicine 01/15/23
== END 2024-11-11 10:03 | disposition home or self-care (01) ==
PROVIDERS: PCP Internal Medicine; Visit Provider Internal Medicine
DX: Z12.2 Encounter for screening for malignant neoplasm of respiratory organs (principal); Z87.891 Personal history of nicotine dependence
CPT/HCPCS: 71271

== ENCOUNTER 2025-05-28 01:50 | Day surgery (SDC) | payer MEDICARE, SELFPAY ==
[2025-05-15 13:53] VITALS: BMI 30.9
--- OUTSIDE RECORDS SUMMARY | 2025-05-28 01:54 | XMS_ITS | Clinical Summary ---
Author Organization [facility] [address] [facility] [address] [facility] [address] [place] [address] Care Team Providers Care Slitter Helper Name Role Phone aYhir Iniguez MD Primary Care Provider [phone] Allergies Active Allergy Reactions Criticality Noted Date Comments Morphine Hives Medium 03/14/2023 Medications levothyroxine (SYNTHROID) 112 mcg tablet Take 1 tablet (112 mcg total) by mouth daily 3 Active ALPRAZolam (XANAX) 0.25 mg tablet Take 1 tablet (0.25 mg total) by mouth 3 (three) times a day 3 Active cyclobenzaprine (FLEXERIL) 10 mg tablet Take 1 tablet (10 mg total) by mouth 3 (three) times a day as needed for muscle spasms Active phenytoin ER (DILANTIN) 100 mg ER capsule Take 2 capsules (200 mg total) by mouth daily 3 Active diltiazem LA (CARDIZEM LA) 360 mg 24 hr tablet Take 1 tablet (360 mg total) by mouth daily 30 tablet 9 5 12/25/19 26 Active Additional Information Patient taking differently: 300 mgoral Daily, Reported on 02/16/2025 Active Problems Problem Noted Date Diagnosed Date SVT (supraventricular tachycardia) 03/14/2023 Thyroid activity decreased 08/26/2012 Surgical History Surgery Date Site/Laterality Comments TX APPENDECTOMY Appendectomy - 1995 (Added by TW Conv) DILATION AND CURETTAGE OF UTERUS Dilation And Curettage - (Added by TW Conv) CARPAL TUNNEL RELEASE Medical History Medical History Date Comments Atrial fibrillation (HCC) Palpitations Hyperlipidemia Left hip pain Anxiety Diverticulitis Seizure disorder (HCC) Thyroid disease Family History Medical History Relation Name Comments Breast cancer Maternal Grandmother Breast Cancer - (Added by TW Conv) Breast cancer Mother Breast Cancer - (Added by TW Conv) Lung cancer Mother Relation Name Status Comments Father Maternal Grandmother Mother Social History Tobacco Use Types Packs/Day Years Used Date Smoking Tobacco: Every Day Cigarettes Smokeless Tobacco: Never Tobacco Cessation:Ready to Q uit: Not Asked; Counseling Given: Not Answered Comments Unknown Sex and Gender Information Value Date Recorded Sex Assigned at Not on file Legal 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 Gender Identity Not on file Sexual Orientation Not on file Obstetrics History Last Filed Vital Signs Vital Sign Reading Time Taken Comments Blood Pressure 148/76 02/16/2025 11:10 AM CDT Pulse 95 02/16/2025 11:10 AM CDT Temperature - - Respiratory Rate - - Oxygen Saturation 99% 10/02/2024 10: 09 AM THERMOGRAPH OPERATOR Inhaled Oxygen Concentration - - Weight 88.4 kg (194 lb 14.4 oz) 025 11:10 AM CDT Height 167.6 cm (5' 6) 02/16/2025 11:1 0 AM CDT Body Mass Index 31.46 02/16/2025 11:10 AM CDT Plan of Treatment Health Maintenance Due Date Last Done Comments Colon Cancer Screening-Colonoscopy 1955 Depression Screening 1955 Fall Risk Assessment 1955 Hepatitis C Screening 1955 Osteoporosis Screening-Bone Density Scan 1955 DTaP/Tdap/Td Vaccine (1 - Tdap) 10/12/1966 Hepatitis B Screening 10/12/1973 Breast Cancer Screening-Mammogram 07/28/2015 014, 06/16/2013 Well Visit 65+ 10/12/2020 Covid-19 Vaccine (2023-2 5 season) 2025 05/07/2024, 04/17/2023, 05/10/2022, Additional history exists Influenza Vaccine (#1) 2025 , 04/17/2023, 05/10/2022, Additional history exists Pneumococcal vaccine 65+ Completed 04/05/2022 Zoster Vaccine Completed 07/10/2023, 04/24/2023 Procedures Procedure Name Priority Date/Time Associated Diagnosis Comments SCREENING MAMMOGRAM W AP Routine 07/28/2014 11:11 AM THERMOGRAPH OPERATOR from Last 3 Months or Most Recently Relevant to Health Maintenance Results * Screening Mammogram W Ap (07/28/2014 11:11 AM THERMOGRAPH OPERATOR) Anatomical Region Laterality Modality Breast N/A Mammography 07/28/2014 11:1 1 AM THERMOGRAPH OPERATOR Narrative 07/28/2014 3:27 PM THERMOGRAPH OPERATOR ANALY HAYES M.D. FINAL REPORT ACC# Date Time Exam [id number] Jul 28, 2014 11:11:00 [facility] [place] [id number] Bilateral screen w ap Technologist(s): Alejandrina Lopez; ; EXAMINATION: Mammogram Technique: Bilateral Bilateral Full-Field Digital Screening Mammogram and Digital Breast Tomosynthesis were performed. Views obtained: bilateral craniocaudal and bilateral mediolateral oblique. Computer Aided Detection of the 2D images was performed with ActiveGift.3 version 9.3. Mammogram Findings: The present examination has been compared to prior imaging studies performed at [facility] on 06/16/2013, 06/12/2012 and 05/19/2011. There [...] M.D. FINAL REPORT ACC# Date Time Exam [id number] Jul 28, 2014 11:11:00 [facility] [place] [id number] Bilateral screen w ap Technologist(s): Alejandrina Lopez; ; EXAMINATION: Mammogram Technique: Bilateral Bilateral Full-Field Digital Screening Mammogram and Digital Breast Tomosynthesis were performed. Views obtained: bilateral craniocaudal and bilateral mediolateral oblique. Computer AidedDetection of the 2D images was performed with Active[employer]ift.3 version 9.3. Mammogram Findings: The present examination has been compared to prior imaging studies performed at [facility] on 06/16/2013, 06/12/2012 and 05/19/2011. There [...] Most Recently Relevant to [place] [address] MEDICARE [employer] [address] MEDICARE [employer] S[employer] Care Teams Slitter Helper Relationship Specialty Start Date End Date Yahir Iniguez MD PCP - General Internal Medicine 01/15/23
[2025-05-28 08:14] VITALS: BP 146/73; PULSE 91; RESP 18; TEMP 36.1; O2SAT 100; BMI 30.8
[2025-05-28] MEDS: LACTATED RINGERS 1,000 ML 150 ML IV CONT (08:21)
--- NOTE | 2025-05-28 08:53 | WPDANESEPPF ---
Anes - Initial Pre Proc Eval Procedure: Operation Date: 05/28/25 08:30 Proposed Procedures p Screening Colonoscopy - Carl Hoang MD Date/Time: 05/28/25 08:53 Surgeon: Carl Hoang MD Pre Op Diagnosis: Personal history of colon polyps, unspecified Patient Data Age: 69 Gender: F Height: 1.68 m Weight: 86.6 kg Last Vital Signs Temp 97 F L 05/28/25 08:14 Pulse 91 05/28/25 08:14 Resp 18 05/28/25 08:14 BP 146/73 H 05/28/25 08:14 Pulse Ox 100 05/28/25 08:14 O2 Del Method Room Air 05/28/25 08:14 Allergies Allergy/AdvReac Type Severity Reaction Status Date / Time phenylbutazone Allergy Severe Swelling Verified 05/28/25 08:13 morphine Allergy Unknown Itching Verified 05/28/25 08:13 Home Medications ?Medication ?Instructions ?Recorded ?Confirmed ?Type cyclobenzaprine 10 mg tablet 10 mg PO TID #40 tabs 10/07/24 05/28/25 Rx albuterol sulfate 90 mcg/actuation 1 inh inhalation Q4H PRN shortness 10/09/24 05/15/25 Rx aerosol inhaler (Ventolin HFA) of breath or wheezing #8.5 grams cholecalciferol (vitamin D3) 50 50 mcg PO .EOD 02/16/25 05/28/25 History mcg (2,000 unit) capsule sodium sul 1.479 gram-potas ch See Rx Instructions PO PER PKG DIR 03/03/25 05/28/25 Rx 0.188 gram-magnes sul 0.225 gram #24 tabs tablet (Sutab) diltiazem HCl 360 mg capsule,24 360 mg PO DAILY 05/07/25 05/28/25 History hr,extended release (Tiadylt ER) phenytoin sodium extended 100 mg See Rx Instructions .Route 05/07/25 05/28/25 Rx capsule .COMPLEX #180 caps alprazolam 0.25 mg tablet 0.25 mg PO TID #90 tabs 05/15/25 05/28/25 Rx levothyroxine 100 mcg tablet 100 mcg PO DAILY #90 tabs 05/21/25 05/28/25 Rx (Synthroid) Patient hx anesthesia problems: none Family hx anesthesia problems: none Results Review: All pre-operative results and documents have been reviewed as part of the pre-operative evaluation. [facility] Past Medical History Medical History Cough Hx of atrial fibrillation without current medication DJD (degenerative joint disease), multiple sites Supraventricular tachycardia Encounter for routine adult health examination without abnormal findings Family history of valvular heart disease Stress Hematuria BMI 28.0-28.9,adult Acute pain of right knee Chronic low back pain Visual floaters Encounter for routine adult health examination with abnormal findings Sacroiliitis Tobacco abuse BMI 30.0-30.9,adult Left hip pain UTI (urinary tract infection) BMI 29.0-29.9,adult COVID-19 vaccine administered History of hematuria History of diverticulitis History of colon polyps Skin lesion of neck Vitamin D deficiency Screening mammogram, encounter for Postmenopausal Anxiety Breast cancer screening Colon cancer screening History of atrial fibrillation Hx of seizure disorder Hypothyroidism Mixed hyperlipidemia 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 Other Family history of headache disorder Social History Social History Smoking packs per day: 1 Smoking cigarettes per day: 20.0 Years smoked: 40 Smoking pack-years: 40.00 Smoking status: Current some day smoker Tobacco type: cigarettes Second hand tobacco smoke exposure: Yes Alcohol intake: current Drinks per week: 14 Substance use: never Substance use type: does not use Do You Feel Safe in your Home?: Yes Lack of Transportation: No Lack of Food: Never True Current Housing: I Have Housing Concerned About Future Housing: No Difficulty Paying Gas/Electric Bills: No Difficulty Paying for Meds: No Education: Bachelor's Degree Difficulty w/ Childcare or Family Care: No Living arrangements: alone Occupation/Education: retired 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 Gender identity (if verbalized by the patient): Female Spiritual care concerns: No Anes - Eval Final PreProcedure Day of Procedure 05/28/25 08:53 Patient weight: obese Lungs: normal air movement Airway: Mallampati scale class II Neurological: alert and oriented Last oral intake: >/= 8 hours ASA classification: III Emergent: no Anesthetic plan: proceed Anesthesia type and monitoring: general GIVS and standard monitoring Results Review: All pre-operative results and documents have been reviewed as part of the pre-operative evaluation. Smoker, 1 ppd for 50 years, hx HTN, hypothyroidism, now therapeutic. Informed Consent: The patient's anesthetic plan and its attendant risks and benefits were discussed with the patient/family/POA. Questions were solicited and answers provided to the satisfaction of the patient/family/POA.
--- NOTE | 2025-05-28 09:11 | PM.IMHP ---
H&P: HPI History of Present Illness Date/Time: 05/28/25 09:11 Chief Complaint: History of colon polyps Narrative: The patient has a history of colonic polyps, the last colonoscopy was 5 years ago. Last week, a colonoscopy was attempted but the prep was poor. This time she comes back having prepped with SUTAB. Review of Systems Review of Systems: All systems reviewed & are unremarkable except as noted in HPI and below PMFSH Past Medical History Medical History Cough Hx of atrial fibrillation without current medication DJD (degenerative joint disease), multiple sites Supraventricular tachycardia Encounter for routine adult health examination without abnormal findings Family history of valvular heart disease Stress Hematuria BMI 28.0-28.9,adult Acute pain of right knee Chronic low back pain Visual floaters Encounter for routine adult health examination with abnormal findings Sacroiliitis Tobacco abuse BMI 30.0-30.9,adult Left hip pain UTI (urinary tract infection) BMI 29.0-29.9,adult COVID-19 vaccine administered History of hematuria History of diverticulitis History of colon polyps Skin lesion of neck Vitamin D deficiency Screening mammogram, encounter for Postmenopausal Anxiety Breast cancer screening Colon cancer screening History of atrial fibrillation Hx of seizure disorder Hypothyroidism Mixed hyperlipidemia On correction drug therapy Personal history of nicotine dependence Surgical History Surgical History Hx of colonoscopy Family History Family History Mother Hypertension Family history of arthritis Father Family history of arthritis Sibling No problems noted. Other Family history of headache disorder Social History Social History Smoking packs per day: 1 Smoking cigarettes per day: 20.0 Years smoked: 40 Smoking pack-years: 40.00 Smoking status: Current some day smoker Tobacco type: cigarettes Second hand tobacco smoke exposure: Yes Alcohol intake: current Drinks per week: 14 Substance use: never Substance use type: does not use Do You Feel Safe in your Home?: Yes Lack of Transportation: No Lack of Food: Never True Current Housing: I Have Housing Concerned About Future Housing: No Difficulty Paying Gas/Electric Bills: No Difficulty Paying for Meds: No Education: Bachelor's Degree Difficulty w/ Childcare or Family Care: No Living arrangements: alone Occupation/Education: retired 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 Gender identity (if verbalized by the patient): Female Spiritual care concerns: No Meds Home Medications and Allergies Home Medications ?Medication ?Instructions ?Recorded ?Confirmed ?Type cyclobenzaprine 10 mg tablet 10 mg PO TID #40 tabs 10/07/24 05/28/25 Rx albuterol sulfate 90 mcg/actuation 1 inh inhalation Q4H PRN shortness 10/09/24 05/15/25 Rx aerosol inhaler (Ventolin HFA) of breath or wheezing #8.5 grams cholecalciferol (vitamin D3) 50 50 mcg PO .EOD 02/16/25 05/28/25 History mcg (2,000 unit) capsule sodium sul 1.479 gram-potas ch See Rx Instructions PO PER PKG DIR 03/03/25 05/28/25 Rx 0.188 gram-magnes sul 0.225 gram #24 tabs tablet (Sutab) diltiazem HCl 360 mg capsule,24 360 mg PO DAILY 05/07/25 05/28/25 History hr,extended release (Tiadylt ER) phenytoin sodium extended 100 mg See Rx Instructions .Route 05/07/25 05/28/25 Rx capsule .COMPLEX #180 caps alprazolam 0.25 mg tablet 0.25 mg PO TID #90 tabs 05/15/25 05/28/25 Rx levothyroxine 100 mcg tablet 100 mcg PO DAILY #90 tabs 05/21/25 05/28/25 Rx (Synthroid) Allergies Allergy/AdvReac Type Severity Reaction Status Date / Time phenylbutazone Allergy Severe Swelling Verified 05/28/25 08:13 morphine Allergy Unknown Itching Verified 05/28/25 08:13 Vital Signs Vital Signs - 24 hr 05/28/25 08:14 Temperature 97 F L Pulse Rate 91 Respiratory Rate 18 Blood Pressure 146/73 H Pulse Oximetry 100 Oxygen Delivery Room Air Exam Const: General: cooperative and healthy appearing Resp: Effort & Inspection: normal respiratory effort and able to speak in complete sentences Auscultation: clear to auscultation bilaterally Cardio: Rate: regular rate Rhythm: regular rhythm GI: Inspection: normal to inspection GI Palp: No No hepatosplenomegaly present Auscultation: normal bowel sounds Rectal Exam: deferred Skin: General skin exam: normal color Psych: Appearance: grossly normal Mental Status: mental status grossly normal Assessment and Plan Assessment and plan (1) History of colon polyps: Code(s): Z86.010 - Personal history of colon polyps Status: Acute Assessment and Plan: The patient is deemed a good candidate for the procedure. Consent signed. Will proceed.
--- NOTE | 2025-05-28 09:42 | S_PTH ---
PATIENT: Danika Dasilva LOC: [facility]#:[id number] AGE/SX: 69/F ROOM: RE05/28/[address]: Carl Hoang MD : 1955 BED: DIS: 05/28/2025 SPEC #: [id number] RECD: 05/28/25 10:18 STATUS: RANDAL REQ #: [id number] NICHELLE: 05/28/25 09:[address]: Carl Hoang DEPT: [facility] Surgical RECD BY: Jessica Jaramillo ENTERED: 05/28/25 10:19 SP TYPE: Surgical OTHR DR: Manpreet Dial APRN Tissues: A - Colon Polypectomy B - Colon Polypectomy Procedures: Hematoxylin and Eosin Stain Gross and Microscopic Level 4
[2025-05-28 09:44] VITALS: BP 119/66; PULSE 79; RESP 20; O2SAT 99
[2025-05-28 09:54] VITALS: BP 131/72; PULSE 79; RESP 20; O2SAT 99
[2025-05-28 10:04] VITALS: BP 141/72; PULSE 81; RESP 20; O2SAT 99
== END 2025-05-28 10:14 | disposition home or self-care (01) ==
PROVIDERS: PCP Nurse Practitioner; Referring Provider Internal Medicine Gastroenterology; Visit Provider Internal Medicine Gastroenterology
PROC: 0DJD8ZZ Inspection of Lower Intestinal Tract, Via Natural or Artificial Opening Endoscopic (ICD-10-PCS; CPT 45378; principal; 2025-05-28 08:30)
DX: Z09 Encounter for follow-up examination after completed treatment for conditions other than malignant neoplasm (principal); D12.5 Benign neoplasm of sigmoid colon; D12.3 Benign neoplasm of transverse colon; K57.30 Diverticulosis of large intestine without perforation or abscess without bleeding; I10 Essential (primary) hypertension; E03.9 Hypothyroidism, unspecified; E78.2 Mixed hyperlipidemia; E55.9 Vitamin D deficiency, unspecified; I48.91 Unspecified atrial fibrillation; I47.10 Supraventricular tachycardia, unspecified; F41.9 Anxiety disorder, unspecified; G40.909 Epilepsy, unspecified, not intractable, without status epilepticus; M15.0 Primary generalized (osteo)arthritis; G89.29 Other chronic pain; M54.50 Low back pain, unspecified; F17.210 Nicotine dependence, cigarettes, uncomplicated; E66.9 Obesity, unspecified; Z68.30 Body mass index [BMI] 30.0-30.9, adult; Z79.51 Long term (current) use of inhaled steroids; Z79.899 Other long term (current) drug therapy; Z87.19 Personal history of other diseases of the digestive system; Z82.49 Family history of ischemic heart disease and other diseases of the circulatory system
CPT/HCPCS: 45385; 88305; J2003; J2704; J7120